=== PATIENT | male | born 1940 | race Caucasian/White ===

== ENCOUNTER 2021-02-07 08:42 | Emergency (ER) | payer MEDICARE ==
[~2021-02-07] VITALS: Ht 165.1 cm; Wt 74.5 kg
[~2021-02-07 08:42] MED LIST: ARICEPT10 MG PO; ASPIRIN 81M81 MG/TA2 PO; BENAZEPRIL HCL/1 TAB PO; EXELON 1.5MG1.5 MG PO; EXELON6 MG PO; FLOMAX 0.40.4 MG/CAP PO; FOLIC ACID 11 MG/TA1 PO; HYDROXYZINE10 M1 PO; HYZAAR 25 MG-101 TAB PO; LIPITOR 40MG TA40 MG PO; LUNESTA3 MG PO; MACROBID 1100 MG/CAP PO; NAMENDA XR 28MG PO; NORCO 325 MG-51 TAB PO; NORVASC 5MG5 MG/TAB PO; PERCOCET 325 MG1 TA2 PO; PROTONIX 40MG T40 MG PO; SEROQUEL 1100 MG/TAB PO; SEROQUEL 2525 MG/TAB PO; SIMVASTATIN40 MG PO; ULTRAM 50MG TAB50 MG PO; XYZAL5 MG PO; ZOLOFT 100MG100 MG PO; ZOLOFT 25MG25 MG PO; ZOLOFT 50MG50 MG PO
[2021-02-07 08:46] VITALS: TEMP 8.2
[2021-02-07] MEDS ORDERED: NORCO 325 MG-51 TAB PO (10:21)
[2021-02-07 10:45] VITALS: BP 141/87; PULSE 62
[2021-02-07] MEDS ORDERED: LIPITOR 40MG TA40 MG PO (22:17)
[2021-02-07] MEDS ORDERED: SEROQUEL 1100 MG/TAB PO (22:17)
[2021-02-07] MEDS ORDERED: EXELON6 MG PO (22:17)
[2021-02-07] MEDS ORDERED: FOLIC ACID 11 MG/TA1 PO (22:17)
[2021-02-07] MEDS ORDERED: ZOLOFT 50MG50 MG PO (22:18)
[2021-02-07] MEDS ORDERED: SEROQUEL 2525 MG/TAB PO (23:00)
[2021-02-08] MEDS ORDERED: NAMENDA XR 28MG PO (00:56)
== END 2021-02-07 10:45 | disposition home or self-care (01) ==
LOC: EDBD 08:42 → COL.ER 08:42
DX: S42.214A Unspecified nondisplaced fracture of surgical neck of right humerus, initial encounter for closed fracture (principal); F03.90 Unspecified dementia, unspecified severity, without behavioral disturbance, psychotic disturbance, mood disturbance, and anxiety; I10 Essential (primary) hypertension; Z87.891 Personal history of nicotine dependence; Z79.899 Other long term (current) drug therapy; W10.9XXA Fall (on) (from) unspecified stairs and steps, initial encounter

== ENCOUNTER 2021-02-07 19:54 | Inpatient (IN) | payer BC, MEDICARE ==
[~2021-02-07] VITALS: Ht 165.1 cm; Wt 70.6 kg
[2021-02-07 20:26] LABS: BASO % 0.2 % (0.0-2.0); EOS # 0.1 (0.0-0.7); EOS % 0.6 % (0-4.0); GRAN # 10.5 (1.4-6.5); GRAN % 84.4 % (42.2-75.2); HEMATOCRIT 41.7 % (42.0-52.0); HEMOGLOBIN 13.1 g/dl (13.5-18.0); LYMPH # 0.9 (1.2-3.4); LYMPH % 7.4 % (20.0-51.0); MEAN CELL VOLUME 103 fl (80.0-100.0); MEAN CORPUSCULAR HEMOGLOBIN 32 pg (27.0-31.0); MEAN CORPUSCULAR HGB CONC 31 g/dl (33.0-37.0); MEAN PLATELET VOLUME 10.3 fl (7.4-10.4); MONO # 0.9 (0.1-0.6); MONO % 7.1 % (1.7-9.3); PLATELET COUNT 174 K/mm3 (130-400); RED BLOOD COUNT 4.07 M/mm3 (4.20-5.60); REDCELL DISTRIBUTION WIDTH-CV 13.2 % (11.5-14.5)
[2021-02-07 20:33] LABS: INR 1.1 (0.8-3.0); PROTHROMBIN TIME 12.3 SECONDS (9.7-12.8)
[2021-02-07 20:39] LABS: ALBUMIN 3.9 gm/dL (3.5-5.0); BILIRUBIN,TOTAL 0.6 mg/dL (0.0-1.0); CALCIUM 9.5 mg/dL (8.4-10.2); CREATININE, serum 2.06 (0.66-1.25); POTASSIUM 4.6 mmol/L (3.4-5.0); TOTAL PROTEIN 7.3 gm/dL (6.4-8.2)
[2021-02-07] MEDS ORDERED: EXELON6 MG PO (22:17)
[2021-02-07] MEDS ORDERED: FOLIC ACID 11 MG/TA1 PO (22:17)
[2021-02-07] MEDS ORDERED: LIPITOR 40MG TA40 MG PO (22:17)
[2021-02-07] MEDS ORDERED: SEROQUEL 1100 MG/TAB PO (22:17)
[2021-02-07] MEDS ORDERED: ZOLOFT 50MG50 MG PO (22:18)
[2021-02-07] MEDS ORDERED: SEROQUEL 2525 MG/TAB PO (23:00)
--- NOTE | 2021-02-07 23:20 | NUR ---
ARRIVED TO ROOM 325 VIA CART FROM ED. WAS ASSISTED TO BED WITH 2 STAFF, WOBBLY ON HIS FEET. PLACED IN YELLOW GOWN, NOTED PURPLE BRUISING TO RT ARM/AXILLAE, ARM IN SLING. HAS SL TO LEFT HAND. IS ALERT, CONFUSED. NOT ABLE TO TELL THIS NURSE HIS WIFES NAME OR WHERE HE IS. BED ALARM SET.
[2021-02-07 23:37] VITALS: BP 118/56; PULSE 72; TEMP 99
--- NOTE | 2021-02-08 00:12 | NUR ---
GIVEN SCHEDULED HS MEDS WELL OXYCODONE 5MG FOR PAIN TO RT ARM. SWALLOWED SOME PILLS, CHEWED UP OTHERS. IVF CONNECTED TO LEFT HAND SL, INFUSING WITHOUT PROBLEM.
--- NOTE | 2021-02-08 00:40 | NUR ---
SPOKE WITH PTS REGARDING ADMISSION QUESTIONS. MED REC COMPLETED WITH HER HELP. SHE DID ADVISE PT HAS RECENTLY STARTED CHEWING HIS PILLS AT HOME.
[2021-02-08 00:52] LABS: COLLECTION METHOD CATHETER
[2021-02-08] MEDS ORDERED: NAMENDA XR 28MG PO (00:56)
[2021-02-08 00:57] LABS: MUCOUS Present /lpf; PH 5 (5-8); SQUAMOUS EPITHELIAL None Seen /hpf; URINE APPEARANCE Hazy; URINE BACTERIA None Seen /hpf; URINE BILIRUBIN Negative (NEGATIVE); URINE BLOOD 2+ (NEGATIVE); URINE COLOR Yellow; URINE GLUCOSE Negative (NEGATIVE); URINE KETONE Negative (NEGATIVE); URINE LEUKOCYTE ESTERASE 1+ (NEGATIVE); URINE NITRATE Negative (NEGATIVE); URINE PROTEIN(semi-quant) 1+ (NEGATIVE); URINE RBC 20-50 /hpf; URINE UROBILINOGEN Negative (NEGATIVE)
--- NOTE | 2021-02-08 02:20 | NUR ---
IV ROCEPHIN 1GM GIVEN AT THIS TIME. UA SENT FOR CULTURE.
[2021-02-08 03:54] VITALS: BP 137/82; PULSE 82; TEMP 97.6
--- NOTE | 2021-02-08 06:01 | NUR ---
PT GRIMACING IN PAIN. MEDICATED WITH OXYCODONE 5MG PO NOW.
[2021-02-08 06:58] LABS: BASO % 0.4 % (0.0-2.0); EOS # 0.2 (0.0-0.7); EOS % 2.5 % (0-4.0); GRAN # 5.2 (1.4-6.5); HEMOGLOBIN 11.4 g/dl (13.5-18.0); LYMPH # 1.5 (1.2-3.4); LYMPH % 19.7 % (20.0-51.0); MEAN CELL VOLUME 101 fl (80.0-100.0); MEAN CORPUSCULAR HEMOGLOBIN 32 pg (27.0-31.0); MEAN CORPUSCULAR HGB CONC 32 g/dl (33.0-37.0); MEAN PLATELET VOLUME 10.6 fl (7.4-10.4); MONO # 0.8 (0.1-0.6); MONO % 10.1 % (1.7-9.3); PLATELET COUNT 173 K/mm3 (130-400); RED BLOOD COUNT 3.55 M/mm3 (4.20-5.60); REDCELL DISTRIBUTION WIDTH-CV 13.5 % (11.5-14.5)
[2021-02-08 07:00] LABS: HEMATOCRIT 35.8 % (42.0-52.0)
[2021-02-08 07:22] LABS: CALCIUM 8.7 mg/dL (8.4-10.2); CREATININE, serum 1.89 (0.66-1.25); POTASSIUM 4.2 mmol/L (3.4-5.0)
[2021-02-08 07:55] LABS: CREATININE, serum 1.89 (0.66-1.25)
[2021-02-08 07:57] LABS: FRACTIONAL EXCRETION OF NA+ 0.5 %
[2021-02-08 08:09] VITALS: BP 78/63; PULSE 70; TEMP 98.3
--- NOTE | 2021-02-08 09:31 | NUR ---
MAGGIE met with patient and patients for discharge planning. Patient lives at home with and they reside in [place]. Patient's PCP is Dr. Vidal. Patient's is his primary dry wall plasterer who works jig worker. states she wishes for a short term skilled placement for her to obtain more PT/OT with a goal of more independence. Patient currently has [facility] coming in for services 5 times a week at private pay. states patient has a history of stays in healthcare at at both [facility] and [facility]. Spouse is open to any local facility. SW sent referrals to [facility], [facility] and [facility] for skilled placement. Will await screenings. *Discharge Plan: Skilled placement*
[2021-02-08 11:30] VITALS: BP 128/69; PULSE 63; TEMP 98
[2021-02-08 16:35] VITALS: BP 133/43; PULSE 66; TEMP 99.1
--- NOTE | 2021-02-08 18:32 | NUR ---
Patient resting in bed. He has done well today. Mentation better this evening. He states his name and birthday, unaware of where he is or date. He has been able to eat independently after set up. He ambulated halls with therapy today. Tylenol for pain. Swathe on sling in place. Cms intact. Oilseed Meat Presser assist with hygiene this afternoon. IVF continue to LFA. Will report off to nightnurse
[2021-02-08 20:36] VITALS: BP 117/76; PULSE 58; TEMP 98.3
--- NOTE | 2021-02-08 21:00 | NUR ---
PT IN BED, MORE ALERT AND APPROPRIATE TONIGHT. AWARE HE IS IN THE HOSPITAL, NOT SURE WHAT DAY IT IS, STILL UNABLE TO TELL NURSE WIFES NAME, BUT DID SAY SHE WAS HIS SECOND . RT ARM IN SLING/SWATH, GOOD CSM OF RT HAND FINGERS. BRUISING TO AXILLA AND POSTERIOR UPPER ARM. TAKES HS MEDS CRUSHED IN APPLESAUCE WITHOUT PROBLEM. IVF CONTINUE TO RT HAND, NO REDNESS OR SWELLING. BED ALARM ON.
--- NOTE | 2021-02-08 23:30 | NUR ---
ASSISTED TO BATHROOM WITH 2 STAFF, GAIT SLIGHT UNSTEADY, VOIDS AND BACK TO BED.
--- NOTE | 2021-02-08 23:46 | NUR ---
PT REPORTS RT ARM PAIN AFTER WALKING TO BATHROOM, TAKES SCHEDULED ES TYLENOL, MELATONIN AND OXYCODONE AT THIS TIME, CRUSHED IN APPLESAUCE.
[2021-02-09] VITALS (7 sets, daily range): BP systolic 115–167; BP diastolic 49–71; PULSE 53–68; TEMP 97.8–98.6
--- NOTE | 2021-02-09 04:30 | NUR ---
IMPULSIVE GETTING UP. ASSISTED TO BATHROOM VOIDS AND BACK TO BED. HAS RT ARM OUT OF SLING MORE THAN IN. IS PLEASANTLY CONFUSED. BED ALARM ON.
--- NOTE | 2021-02-09 08:00 | NUR ---
PATIENT IS SITTING UP IN BED EATING BREAKFAST. PATIENT HAS HX OF ALZEHEIMERS AND DEMENTIA AND CANNOT ANSWER WHERE HE IS, WHAT DAY IT IS, OR WHO THE PRESIDENT IS. PATIENT IS PLEASANT AND ALERT OTHERWISE. PATIENT HAS RIGHT ARM IN SLING DUE TO FRACTURE. PATIENT WAS GIVEN MEDS PER ORDERS CRUSHED IN APPLESAUCE. AWAITING DISCHARGE PLANS. PATIENT DENIES FURTHER NEEDS AT THIS TIME. HEAD TO TOE ASSESSMENT COMPLETE. CALL LIGHT WITHIN REACH.
--- NOTE | 2021-02-09 10:09 | NUR ---
Initial visit; "Agustin" thanked Auto Winder for looking in on him and offering to keep him in her prayers.
--- NOTE | 2021-02-09 10:45 | NUR ---
PATIENT IN BATHROOM AND PULLED OUT IV. HE IS VERY CONFUSED AND STATED "I DON'T KNOW HOW THIS HAPPENED". GOT PATIENT BACK TO BED AND RESTARTED 20G IV TO THE LEFT FOREARM. NO FURTHER NEEDS AT THIS TIME. CALL LIGHT WITHIN REACH.
--- NOTE | 2021-02-09 14:01 | NUR ---
Jennifer states they cannot accept patient. Anibal with [facility] states they can accept patient to skilled care. Worker contacted spouse and advised of the above information.
[2021-02-10 04:45] VITALS: BP 173/78; PULSE 63; TEMP 98.6
--- NOTE | 2021-02-10 06:31 | NUR ---
Patient has been up several times to the bathroom during the night. He will not keep his sling on his right arm. attempted to at least keep it elevated during the night. He stated having some pain to his right leg, repositioned him and it seemed to help. He kept trying to lay on left side with his legs crossed. Patient continues to be confused. No complaints of nausea. He keeps having urinary urgency, he gets very upset when he has to go to the bathroom. He is unsteady with ambulation. No other changes at this time. Call light within reach.
[2021-02-10 06:55] LABS: BASO % 0.3 % (0.0-2.0); EOS # 0.3 (0.0-0.7); EOS % 3.5 % (0-4.0); GRAN # 6.4 (1.4-6.5); GRAN % 71.7 % (42.2-75.2); HEMOGLOBIN 11.3 g/dl (13.5-18.0); LYMPH # 1.3 (1.2-3.4); LYMPH % 14.1 % (20.0-51.0); MEAN CELL VOLUME 100 fl (80.0-100.0); MEAN CORPUSCULAR HEMOGLOBIN 33 pg (27.0-31.0); MEAN CORPUSCULAR HGB CONC 33 g/dl (33.0-37.0); MEAN PLATELET VOLUME 10.9 fl (7.4-10.4); MONO # 0.9 (0.1-0.6); MONO % 10.1 % (1.7-9.3); PLATELET COUNT 165 K/mm3 (130-400); RED BLOOD COUNT 3.48 M/mm3 (4.20-5.60); REDCELL DISTRIBUTION WIDTH-CV 13.3 % (11.5-14.5)
[2021-02-10 07:04] LABS: HEMATOCRIT 34.8 % (42.0-52.0)
[2021-02-10 07:19] LABS: CALCIUM 8.7 mg/dL (8.4-10.2); CREATININE, serum 1.25 (0.66-1.25); POTASSIUM 3.7 mmol/L (3.4-5.0)
--- NOTE | 2021-02-10 07:33 | NUR ---
Patient laying inbed, alert to name, but confused. Denies pain and discomfort. Right arm in sling. IV CDI, fluids infusing. Patient repositioned for breakfast. No further needs expressed from the patient. Call light within reach. Bed alarm on and door open
[2021-02-10 08:20] VITALS: BP 163/78; PULSE 64; TEMP 98
[2021-02-10] MEDS ORDERED: NORCO 325 MG-51 TAB PO (08:52)
[2021-02-10] MEDS ORDERED: TYLENOL 500MG500 MG PO (08:55)
[2021-02-10] MEDS ORDERED: MELATIN 3 MG-11 TAB PO (08:57)
[2021-02-10] MEDS ORDERED: OMNICEF 300MG300 MG PO (08:59)
[2021-02-10] MEDS ORDERED: ROXICODONE 55 MG/TAB PO (09:06)
--- NOTE | 2021-02-10 09:33 | NUR ---
Anibal with [facility] accepts patient to skilled care today. Awaiting time of transfer via facility van. waterside worker met with spouse and advised of the above information. IM presented and signed.
[2021-02-10 12:10] VITALS: BP 146/67; PULSE 63; TEMP 97.5
--- NOTE | 2021-02-10 13:30 | NUR ---
IV removed, tip intact. Gauze and coban applied. Patient assisted with getting dressed. Discharge paperwork and personal belongings with the [facility] transporter. No further needs expressed
--- NOTE | 2021-02-10 16:29 | NUR ---
[facility] arranged their van to transport today at 1:00. fellmongery worker contacted spouse, Gavi, and advised of transfer.
== END 2021-02-10 13:30 | disposition home or self-care (01) | DRG 562 ==
LOC: COL.ER 19:54 → SURG 21:28 → COL.ER 21:28 → SURG 02-08 14:36
PROVIDERS: Internal Medicine; Personal Emergency Response Attendant; Physician Assistant; ADMIT Internal Medicine
DX: S42.201A Unspecified fracture of upper end of right humerus, initial encounter for closed fracture (principal); G93.41 Metabolic encephalopathy; N17.9 Acute kidney failure, unspecified; N39.0 Urinary tract infection, site not specified; E87.2 Acidosis; G30.9 Alzheimer's disease, unspecified; F02.80 Dementia in other diseases classified elsewhere, unspecified severity, without behavioral disturbance, psychotic disturbance, mood disturbance, and anxiety; E78.5 Hyperlipidemia, unspecified; I10 Essential (primary) hypertension; F32.9 Major depressive disorder, single episode, unspecified; Z87.891 Personal history of nicotine dependence; Z79.899 Other long term (current) drug therapy; W10.9XXA Fall (on) (from) unspecified stairs and steps, initial encounter; Y93.01 Activity, walking, marching and hiking
CPT/HCPCS: 99222-AI; 99232-AI; 99233-AI; 99239; J0696; J1650; J7030; J7040; L3660

== ENCOUNTER → 2021-02-15 | Outpatient (REF) ==
[~2021-02-15] MED LIST changes: +MELATIN 3 MG-11 TAB PO; +OMNICEF 300MG300 MG PO; +ROXICODONE 55 MG/TAB PO; +TYLENOL 500MG500 MG PO
== END ==
LOC: ZLAB.STJ 12:42
DX: N17.9 Acute kidney failure, unspecified (principal)

== ENCOUNTER 2021-05-20 01:51 | Emergency (ER) | payer MEDICARE ==
[~2021-05-20] VITALS: Ht 182.9 cm; Wt 84.1 kg
[2021-05-20 01:51] VITALS: TEMP 98.6
[2021-05-20 05:12] VITALS: BP 139/110; PULSE 52
== END 2021-05-20 05:12 | disposition home or self-care (01) ==
LOC: COL.ER 01:51
DX: S09.90XA Unspecified injury of head, initial encounter (principal); S40.021A Contusion of right upper arm, initial encounter; S00.01XA Abrasion of scalp, initial encounter; M54.2 Cervicalgia; M54.6 Pain in thoracic spine; E78.5 Hyperlipidemia, unspecified; F32.A Depression, unspecified; G30.9 Alzheimer's disease, unspecified; F02.80 Dementia in other diseases classified elsewhere, unspecified severity, without behavioral disturbance, psychotic disturbance, mood disturbance, and anxiety; Z79.899 Other long term (current) drug therapy; W18.30XA Fall on same level, unspecified, initial encounter; Y92.121 Bathroom in nursing home as the place of occurrence of the external cause